=== PATIENT | male | born 1980 | race African-American/Black ===

== ENCOUNTER 2016-08-27 12:31 | Emergency (ER) | payer SELFPAY ==
--- NOTE | 2016-08-27 12:59 | EDM.PDOC ---
ED HPI GENERAL MEDICAL PROBLEM - General Chief Complaint: Lower Extremity Injury/Pain Stated Complaint: LEFT KNEE PAIN Time Seen by Provider: 08/27/16 12:40 Source of Information: Reports: Patient History Limitations: Reports: No Limitations - History of Present Illness INITIAL COMMENTS - FREE TEXT/NARRATIVE: Presents reporting that he was playing basketball yesterday when he twisted from a planted position and felt a "pop" in his posterior left knee. He had some pain at the time which seemed to get better but then overnight worsened. No swelling. He has been ambulating on his leg since that time. He works in a sedentary job. left knee Pain Score (Numeric/FACES): 8 - Related Data Allergies Allergy/AdvReac Type Severity Reaction Status Date / Time No Known Allergies Allergy Verified 08/27/16 12:42 Home Meds: Home Meds Diclofenac Sodium [Voltaren] 50 mg PO TIDMEALS PRN #30 tab.ec 08/27/16 [Rx] Past Medical History - Past Health History Medical/Surgical History: Denies Medical/Surgical History Social & Family History - Family History Family Medical History: Noncontributory - Tobacco Use Smoking Status *Q: Former Smoker Used Tobacco, but Quit: Yes Month Tobacco Last Used: 2017 - Alcohol Use Days Per Week of Alcohol Use: 2 Number of Drinks Per Day: 3 Total Drinks Per Week: 6 - Recreational Drug Use Recreational Drug Use: No Review of Systems - Review of Systems Review Of Systems: ROS reveals no pertinent complaints other than HPI. ED EXAM, GENERAL - Physical Exam Exam: See Below Exam Limited By: No Limitations General Appearance: Alert, No Apparent Distress Ears: Normal External Exam Nose: Normal Inspection Throat/Mouth: Normal Inspection Head: Atraumatic, Normocephalic Neck: Normal Inspection Respiratory/Chest: No Respiratory Distress Cardiovascular: Normal Peripheral Pulses GI/Abdominal: Soft Extremities: Normal Inspection, Other (Left knee without erythema, swelling, crepitus or deformity. Mild posterior tenderness to palpation. Anterior posterior drawer and varus valgus stress without laxity. CMS intact distally area. Full range of motion without hesitation or limitation) Neurological: Alert, Oriented Psychiatric: Normal Affect, Normal Mood Skin Exam: Warm, Dry, Intact, Normal Color, No Rash Lymphatic: No Adenopathy Course - Vital Signs Last Recorded V/S: Last Vital Signs Temp 36.8 C 08/27/16 12:43 Pulse 114 H 06/20/17 12:43 Resp 18 08/27/16 12:43 BP 144/92 H 08/27/16 12:43 Pulse Ox 97 08/27/16 12:43 Departure - Departure Time of Disposition: 12:57 Disposition: Home, Self-Care 01 Condition: Good Clinical Impression: Internal derangement of knee Qualifiers: Laterality: left Qualified Code(s): M23.92 - Unspecified internal derangement of left knee - Discharge Information Referrals: PCP,None [Primary Care Provider] - [facility] [Outside] [facility] [Outside] Forms: ED Department Discharge Additional Instructions: 1. Follow-up in physical therapy if not improving within a couple of days 2. Diclofenac 50 mg 3 times a day as needed for pain. Take 3 times today. 3. Follow-up in primary care or orthopedics for non-improving symptoms
[2016-08-27 13:23] VITALS: BP 142/85
== END 2016-08-27 13:18 | disposition home or self-care (01) ==
LOC: MW.ED 12:31
DX: M23.92 Unspecified internal derangement of left knee (principal); Z87.891 Personal history of nicotine dependence
CPT/HCPCS: 99283